=== PATIENT | female | born 1995 | race Caucasian/White ===

== ENCOUNTER 2018-11-01 18:03 | Observation (INO) ==
[2018-11-01] MEDS ORDERED: Ketamine *HR* 15 MG in 0.9 % Sodium Chloride 100 ML IVPB ONE (18:33)
[2018-11-01] MEDS ORDERED: *HR* FentaNYL (PF) 100 MCG/2 ML VIAL IVP ONE (18:39)
[2018-11-01] MEDS ORDERED: *HR* Midazolam HCl 2 MG/2 ML VIAL ONE (19:01)
[2018-11-01] MEDS ORDERED: *HR* Propofol 200 MG/20 ML VIAL IVP ONE (19:01)
[2018-11-01] MEDS ORDERED: *HR* FentaNYL (PF) 100 MCG/2 ML VIAL ONE (19:01)
[2018-11-01] MEDS ORDERED: *HR* Rocuronium Bromide 50 MG/5 ML VIAL ONE (19:06)
[2018-11-01] MEDS ORDERED: Lidocaine HCL 4 ML Topical Solution (Laryng-O-Jet Kit Sterile Pak) TP ONE (19:06)
[2018-11-01] MEDS ORDERED: Lidocaine -MPF 2% 2 ML VIAL ONE (19:06)
[2018-11-01] MEDS ORDERED: *HR* Succinylcholine 200 MG/10 ML VIAL IVP ONE (19:06)
[2018-11-01] MEDS ORDERED: CefOXitin 1,000 MG VIAL ONE ×2 (19:09→20:33)
[2018-11-01] MEDS ORDERED: Ondansetron 4 MG/2 ML VIAL ONE (19:17)
[2018-11-01] MEDS ORDERED: Dexamethasone 4 MG/ML VIAL ONE (19:17)
[2018-11-01] MEDS ORDERED: *HR* HYDROmorphone (PF) 1 MG/ML SYRINGE IVP PRN (19:48)
[2018-11-01] MEDS ORDERED: *HR* Promethazine 25 MG/ML VIAL IVP PRN (19:48)
[2018-11-01] MEDS ORDERED: Ondansetron 4 MG/2 ML VIAL IVP ONE (19:48)
[2018-11-01] MEDS ORDERED: *HR* OxyCODONE Immed Rel 5 MG TABLET PO PRN ×2 (19:48→22:21)
[2018-11-01] MEDS ORDERED: Ringers Solution, Lactated 1,000 ML ONE (21:55)
[2018-11-01] MEDS ORDERED: Ondansetron 4 MG/2 ML VIAL IVP PRN (22:21)
[2018-11-01] MEDS ORDERED: D5% in 0.45% NACL 1,000 ML IVC SCH (22:21)
[2018-11-01] MEDS: Piperacillin/Tazobactam 3.375 GM in 0.9 % Sodium Chloride Mini Bag 100 ML IVPB SCH (23:14)
[2018-11-02] MEDS ORDERED: *HR* OxyCODONE Immed Rel 15 MG TABLET PO PRN (06:14)
[2018-11-02] MEDS ORDERED: *HR* OxyCODONE Immed Rel 5 MG TABLET PO PRN (06:45)
[2018-11-02 08:41] VITALS: BP 99/64
[2018-11-02] MEDS: Piperacillin/Tazobactam 3.375 GM in 0.9 % Sodium Chloride Mini Bag 100 ML IVPB SCH (09:19)
== END 2018-11-02 10:50 | disposition home or self-care (01) ==
LOC: EMEROOARM 18:03 → 3ANU 18:03
PROVIDERS: ADMIT Surgery; ATTEND Surgery